=== PATIENT | male | born 1985 | race Hispanic/Latino ===

== ENCOUNTER 2017-04-12 20:01 | Emergency (ER) | payer BC ==
[2017-04-12 20:42] VITALS: BP 130/70; PULSE 106; RESP 18; TEMP 97.5; O2SAT 97
--- NOTE | 2017-04-12 21:04 | ED PDOC ---
HPI: CCC, URI, Sore Throat Time Seen by Provider: 04/12/17 20:47 Chief Complaint (Nursing): ENT Problem Chief Complaint (Provider): Epistaxis History Per: Patient History/Exam Limitations: no limitations Onset/Duration Of Symptoms: Days (x1) Current Symptoms Are (Timing): Gone Now Additional Complaint(s): Robby Manzanares is a 31 year old male who presents to the ED due to nosebleeds x1 day. He states he gets nosebleeds often in the winter. He also states his nose bled 3 times today at work and each time the bleeding stopped after about 10 minutes. Patient then went home this evening and had prolonged bleeding for one hour which prompted him to come to ED. Upon arrival patient has no further active bleeding. No associated headache or dizziness. Patient states he has been congested and has been taking Sudafed for the congestion. PMD: Kassidy Smith MD Past Medical History Reviewed: Historical Data, Nursing Documentation, Vital Signs Vital Signs: Last Vital Signs Temp 97.5 F L 04/12/17 20:40 Pulse 106 H 04/12/17 20:40 Resp 18 04/12/17 20:40 BP 130/70 04/12/17 20:40 Pulse Ox 97 04/12/17 21:21 - Medical History PMH: HTN - Surgical History Other surgeries: Shell teeth removal - Family History Family History: States: No Known Family Hx - Living Arrangements Living Arrangements: With Family - Social History Current smoker - smoking cessation education provided: Yes Alcohol: Occasional Drugs: Denies - Home Medications Home Medications: Ambulatory Orders Medication Instructions Recorded Ibuprofen [Motrin] 600 mg PO Q8 #30 tab 07/09/14 Sodium Chloride [Hopkins Saline] 50 ml NS DAILY #1 bottle 04/12/17 - Allergies Allergies/Adverse Reactions: Allergies Allergy/AdvReac Type Severity Reaction Status Date / Time berries Allergy RASH Uncoded 04/12/17 20:43 Review of Systems ROS Statement: Except As Marked, All Systems Reviewed And Found Negative Constitutional: Negative for: Fever ENT: Positive for: Other (epistaxis ) Cardiovascular: Negative for: Chest Pain Gastrointestinal: Negative for: Nausea, Vomiting Neurological: Negative for: Headache, Dizziness Physical Exam - Reviewed Nursing Documentation Reviewed: Yes Vital Signs Reviewed: Yes - Physical Exam Appears: Positive for: Well, Non-toxic, No Acute Distress Head Exam: Positive for: ATRAUMATIC, NORMAL INSPECTION, NORMOCEPHALIC Skin: Positive for: Normal Color. Negative for: Rash Eye Exam: Positive for: Normal appearance ENT: Positive for: Nasal Congestion, Other (Bilateral nares are patent, no active bleeding, no septal hematoma). Negative for: Pharyngeal Erythema Cardiovascular/Chest: Positive for: Regular Rate, Rhythm Respiratory: Positive for: Normal Breath Sounds Neurologic/Psych: Positive for: Alert, Oriented - ECG O2 Sat by Pulse Oximetry: 97 (RA) Pulse Ox Interpretation: Normal Medical Decision Making Medical Decision Making: Time: 21:00 Initial Impression: 31 year old male with recurrent epistaxis Plan: --Upon provider evaluation patient is medically stable, and requires no further treatment in the ED at this time. Patient will be discharged home with Rx for Saline nasal spray. Counseling was provided and all questions were answered regarding diagnosis and need for follow up with ENT specialist. There is agreement to discharge plan. Return if symptoms persist or worsen. Scribe Attestation: Documented by Erwin Nieto, acting as a scribe for Mya Whiteside PA-C Provider Scribe Attestation: All medical record entries made by the Scribe were at my direction and personally dictated by me. I have reviewed the chart and agree that the record accurately reflects my personal performance of the history, physical exam, medical decision making, and the department course for this patient. I have also personally directed, reviewed, and agree with the discharge instructions and disposition. Disposition - Clinical Impression Clinical Impression: Epistaxis - Patient ED Disposition Is Patient to be Admitted: No Counseled Patient/Family Regarding: Diagnosis, Need For Followup, Rx Given - Disposition Referrals: Ashu Pascual MD [Staff Provider] - Disposition: Routine/Home Disposition Time: 21:39 Condition: STABLE Additional Instructions: Use saline as directed. Follow up with ear, nose and throat specialist. Prescriptions: Sodium Chloride [Hopkins Saline] 50 ml NS DAILY #1 bottle Instructions: Nosebleed (ED) Forms: [employer] (Upper Sorbian)
== END 2017-04-12 22:25 | disposition home or self-care (01) ==
LOC: H.ER 20:01
DX: R04.0 Epistaxis (principal); I10 Essential (primary) hypertension

== ENCOUNTER 2017-04-14 13:41 | Emergency (ER) | payer BC ==
[2017-04-14 13:48] VITALS: BP 141/89; RESP 18; TEMP 98.2; O2SAT 99
[2017-04-14] MEDS ORDERED: Sodium Chloride 0.9% 1,000 ML IV STA (14:34)
[2017-04-14] MEDS ORDERED: Silver Nitrate Topical - Stick TOP ONE (14:35)
[2017-04-14 14:56] LABS: BASO % 0.7 % (0.0-2.0); EOS # 0.1 K/uL (0.0-0.7); EOS % 2.3 % (0.0-4.0); LYMPH # 1.6 K/uL (1.0-4.3); LYMPH % 25.7 % (20.0-40.0); MEAN CELL VOLUME 93.7 fl (80.0-94.0); MEAN CORPUSCULAR HEMOGLOBIN 32.2 pg (27.0-31.0); MEAN CORPUSCULAR HGB CONC 34.3 g/dL (33.0-37.0); MEAN PLATELET VOLUME 7.6 fl (7.2-11.7); MONO # 0.5 K/uL (0.0-0.8); MONO % 8.4 % (0.0-10.0); NEUT % 62.9 % (50.0-75.0); NRBC % 0.2 % (0.0-0.0); RED CELL DISTRIBUTION WIDTH 12.7 % (11.5-14.5); WHITE BLOOD COUNT 6.4 K/uL (4.8-10.8)
--- NOTE | 2017-04-14 15:03 | ED PDOC ---
HPI: General Adult Time Seen by Provider: 04/14/17 13:57 Chief Complaint (Nursing): ENT Problem History Per: Patient Additional Complaint(s): Pt. states for the past several days he's had intermittent L nostril bleeding. He was seen yesterday in ED for same complaint but today he had continued bleeding from the L nostril which lasted for approximately 45 mins. Pt. states he's been feeling dizzy since then Denies headache, hx of anemia, previous transfusions. Past Medical History Reviewed: Historical Data, Nursing Documentation, Vital Signs Vital Signs: Last Vital Signs Temp 98.2 F 04/14/17 13:45 Pulse 87 04/14/17 13:45 Resp 18 04/14/17 13:45 BP 141/89 04/14/17 13:45 Pulse Ox 99 04/14/17 15:04 - Medical History PMH: Anxiety, HTN - Family History Family History: States: No Known Family Hx - Home Medications Home Medications: Ambulatory Orders Medication Instructions Recorded Ibuprofen [Motrin] 600 mg PO Q8 #30 tab 07/09/14 Sodium Chloride [Gardena Saline] 50 ml NS DAILY #1 bottle 04/12/17 - Allergies Allergies/Adverse Reactions: Allergies Allergy/AdvReac Type Severity Reaction Status Date / Time berries Allergy RASH Uncoded 04/12/17 20:43 Review of Systems ROS Statement: Except As Marked, All Systems Reviewed And Found Negative Neurological: Positive for: Dizziness Physical Exam - Physical Exam Appears: Positive for: Well, Non-toxic, No Acute Distress Head Exam: Positive for: ATRAUMATIC, NORMAL INSPECTION, NORMOCEPHALIC Skin: Positive for: Normal Color, Warm. Negative for: Rash Eye Exam: Positive for: EOMI, Normal appearance, PERRL ENT: Positive for: Other (L nostril with dry blood; no bleeding in pharynx) Neck: Positive for: Normal, Painless ROM Cardiovascular/Chest: Positive for: Regular Rate, Rhythm Respiratory: Positive for: CNT, Normal Breath Sounds Gastrointestinal/Abdominal: Positive for: Normal Exam, Soft. Negative for: Tenderness Back: Positive for: Normal Inspection Extremity: Positive for: Normal ROM Neurologic/Psych: Positive for: Alert, Oriented - Laboratory Results Result Diagrams: 04/14/17 14:50 04/14/17 14:50 - ECG ECG: Positive for: Interpreted By Me ECG Rhythm: Positive for: Sinus Rhythm. Negative for: ST/T Changes Rate: 80 O2 Sat by Pulse Oximetry: 99 Disposition - Clinical Impression Clinical Impression: Epistaxis - Patient ED Disposition Is Patient to be Admitted: No - Disposition Referrals: [facility] [Outside] Ashu Pascual MD [Staff Provider] - Disposition: Routine/Home Disposition Time: 15:30 Condition: IMPROVED Instructions: Nosebleed (ED) Forms: [employer] (Thai) Print Language: CROATIAN
[2017-04-14 15:08] LABS: ALB/GLOB RATIO 1.4 (1.0-2.1); ALKALINE PHOSPHATASE 59 U/L (38-126); ALT/SGPT 204 U/L (21-72); AST/SGOT 111 U/L (17-59); BILIRUBIN,TOTAL 0.3 mg/dl (0.2-1.3); BLOOD UREA NITROGEN 33 mg/dl (9-20); CALCIUM 9.6 mg/dL (8.4-10.2); CARBON DIOXIDE 23 mmol/L (22-30); CHLORIDE 105 mmol/L (98-107); GFR AFRICAN-AMERICAN > 60; GLUCOSE,RANDOM 118 mg/dL (75-110); POTASSIUM 4.3 MMOL/L (3.6-5.0); SODIUM 140 mmol/l (132-148)
[2017-04-14 15:11] LABS: PARTIAL THROMBOPLASTIN TIME 31.6 Seconds (25.6-37.1)
[2017-04-14] MEDS ORDERED: Silver Nitrate Topical - Stick ONE (15:20)
[2017-04-14 16:08] VITALS: PULSE 80
--- NOTE | 2017-04-15 11:01 | CARD ---
APPROVED REPORT EKG Measurement Heart [id number] <Conclusion> Normal sinus rhythm Normal ECG
== END 2017-04-14 16:50 | disposition home or self-care (01) ==
LOC: H.ER 13:41
DX: R04.0 Epistaxis (principal); F41.9 Anxiety disorder, unspecified; I10 Essential (primary) hypertension
CPT/HCPCS: 80053; 85025; 85610; 85730; 86850; 86900; 93005; 96360; 99282; J7040

== ENCOUNTER 2018-10-13 05:31 | Emergency (ER) | payer SELFPAY ==
[2018-10-13 05:53] VITALS: PULSE 79
--- NOTE | 2018-10-13 06:22 | ED PDOC ---
HPI: Abdomen Time Seen by Provider: 10/13/18 05:53 Chief Complaint (Nursing): Abdominal Pain Chief Complaint (Provider): Abdominal Pain History Per: Patient History/Exam Limitations: no limitations Onset/Duration Of Symptoms: Days (x7), Worse Since (this morning) Associated Symptoms: Urinary Symptoms (bloody stools) Additional Complaint(s): 32 years old male with history of colitis presents to ER for evaluation of bloody stools onset a week ago. Patient reports worsening of symptoms this morning and having more bloody stools. He denies abdominal pain. PMD: Kassidy Smith Past Medical History Reviewed: Historical Data, Nursing Documentation, Vital Signs Vital Signs: Last Vital Signs Temp 98.2 F 10/13/18 05:51 Pulse 79 10/13/18 05:51 Resp 16 10/13/18 05:51 BP 145/89 10/13/18 05:51 Pulse Ox 98 10/13/18 05:51 Primary Care Provider: Kassidy Smith - Medical History PMH: Anxiety, HTN Other PMH: Colitis - Surgical History Surgical History: No Surg Hx - Family History Family History: States: Unknown Family Hx - Social History Current smoker - smoking cessation education provided: No Alcohol: None Drugs: Denies - Home Medications Home Medications: Ambulatory Orders Medication Instructions Recorded Ibuprofen [Motrin] 600 mg PO Q8 #30 tab 07/09/14 Sodium Chloride [Hibbs Saline] 50 ml NS DAILY #1 bottle 04/12/17 - Allergies Allergies/Adverse Reactions: Allergies Allergy/AdvReac Type Severity Reaction Status Date / Time berries Allergy RASH Uncoded 04/12/17 20:43 Review of Systems ROS Statement: Except As Marked, All Systems Reviewed And Found Negative Gastrointestinal: Positive for: Hematochezia. Negative for: Abdominal Pain Physical Exam - Reviewed Nursing Documentation Reviewed: Yes Vital Signs Reviewed: Yes - Physical Exam Appears: Positive for: Well, No Acute Distress Head Exam: Positive for: ATRAUMATIC, NORMOCEPHALIC Cardiovascular/Chest: Positive for: Regular Rate, Rhythm. Negative for: Murmur Respiratory: Positive for: Normal Breath Sounds. Negative for: Wheezing Gastrointestinal/Abdominal: Positive for: Normal Exam, Soft. Negative for: Te nderness Rectal: Positive for: Hemorrhoids (external hemorrhoids present), Other (Bright red blood on rectal. No active bleeding. Exam performed in the presence of RN Megan Westfall) Extremity: Positive for: Normal ROM. Negative for: Pedal Edema, Swelling Neurological/Psych: Positive for: Awake, Alert, Oriented (x3) - Laboratory Results Result Diagrams: 10/13/18 06:33 10/13/18 06:33 - ECG O2 Sat by Pulse Oximetry: 98 (RA) Pulse Ox Interpretation: Normal Medical Decision Making Medical Decision Making: Time: 606 Initial impression: rectal bleeding Initial plan: --Type and screen --CT Abdomen/Pelvis --CMP --CBC --PTT --PT 0[address] singed out to Dr. Palacios, pending CT Abdomen. Scribe Attestation: Documented by Radha Neumann acting as a scribe for Jean-Pierre Mcfarland MD. Provider Scribe Attestation: All medical record entries made by the Scribe were at my direction and personally dictated by me. I have reviewed the chart and agree that the record accurately reflects my personal performance of the history, physical exam, medical decision making, and the department course for this patient. I have also personally directed, reviewed, and agree with the discharge instructions and disposition. Disposition - Patient ED Disposition Is Patient to be Admitted: Transfer of Care - Disposition Disposition: Transfer of Care Disposition Time: 07:00 Forms: [employer] (Yemeni) Patient Signed Over To: Michael Palacios
[2018-10-13 06:43] LABS: BASO # 0.1 K/uL (0.0-0.2); BASO % 0.8 % (0.0-2.0); EOS # 0.3 K/uL (0.0-0.7); EOS % 3.9 % (0.0-4.0); HEMOGLOBIN 15.2 g/dL (12.0-18.0); LYMPH # 2.7 K/uL (1.0-4.3); LYMPH % 33.2 % (20.0-40.0); MEAN CELL VOLUME 94.6 fl (80.0-94.0); MEAN CORPUSCULAR HEMOGLOBIN 32.3 pg (27.0-31.0); MEAN CORPUSCULAR HGB CONC 34.1 g/dL (33.0-37.0); MEAN PLATELET VOLUME 7.8 fl (7.2-11.7); MONO # 0.5 K/uL (0.0-0.8); MONO % 6.2 % (0.0-10.0); NEUT # 4.5 K/uL (1.8-7.0); NEUT % 55.9 % (50.0-75.0); NRBC % 0.1 % (0.0-0.0); RBC 4.72 Mil/uL (4.40-5.90); RED CELL DISTRIBUTION WIDTH 13.3 % (11.5-14.5)
[2018-10-13 06:51] LABS: ALB/GLOB RATIO 1.3 (1.0-2.1); ALBUMIN 4.6 g/dL (3.5-5.0); ALT/SGPT 94 U/L (21-72); AST/SGOT 76 U/L (17-59); BLOOD UREA NITROGEN 8 mg/dl (9-20); CALCIUM 8.9 mg/dL (8.4-10.2); GFR NON-AFRICAN AMERICAN > 60
[2018-10-13 06:55] LABS: PROTHROMBIN TIME 11.2 Seconds (9.8-13.1)
[2018-10-13 06:58] LABS: PARTIAL THROMBOPLASTIN TIME 35.1 Seconds (25.6-37.1)
--- NOTE | 2018-10-13 07:17 | ED PDOC ---
- Laboratory Results Result Diagrams: 10/13/18 06:33 10/13/18 06:33 Lab Results: PT 11.2 Seconds (9.8-13.1) 10/13/18 06:33 INR 1.0 10/13/18 06:33 APTT 35.1 Seconds (25.6-37.1) 10/13/18 06:33 Total Bilirubin 0.4 mg/dl (0.2-1.3) 10/13/18 06:33 AST 76 U/L (17-59) H D 10/13/18 06:33 ALT 94 U/L (21-72) H D 10/13/18 06:33 Alkaline Phosphatase 52 U/L (38-126) 10/13/18 06:33 Total Protein 8.1 G/DL (6.3-8.2) 10/13/18 06:33 Albumin 4.6 g/dL (3.5-5.0) 10/13/18 06:33 Globulin 3.5 gm/dL (2.2-3.9) 10/13/18 06:33 Albumin/Globulin Ratio 1.3 (1.0-2.1) 10/13/18 06:33 Interpretation Of Abn Labs: 3.5 k, elevated liver enzymes - ECG O2 Sat by Pulse Oximetry: 98 (RA) Pulse Ox Interpretation: Normal - Progress ED Course And Treament: 912: Stable. AAOx3. Pain free. Tolerated PO. Liver enzymes mild elevation. No rectal bleeding at this time. Will fu with pcp and gi. No urinary symptoms. Medical Decision Making Medical Decision Making: Time: 0700 -- Patient endorsed to me by Dr. Palacios, pending workup, re-assessment and final ER disposition. ____ Scribe Attestation: Documented by Christa Rome, acting as a scribe Frida Palacios MD. Provider Scribe Attestation: All medical record entries made by the Scribe were at my direction and personally dictated by me. I have reviewed the chart and agree that the record accurately reflects my personal performance of the history, physical exam, medical decision making, and the department course for this patient. I have also personally directed, reviewed, and agree with the discharge instructions and disposition. Disposition Counseled Patient/Family Regarding: Studies Performed, Diagnosis, Need For Followup - Clinical Impression Clinical Impression: Rectal bleeding, Elevated liver enzymes, Hypokalemia - POA Present On Arrival: None - Disposition [facility] - 10[facility]14[facility]18 Disposition: Routine/Home Disposition Time: 09:14 Condition: STABLE Additional Instructions: Return if not better in 3 days. You have elevated liver enzymes for which you should follow up with the specialist. Instructions: Bloody Stools, Hypokalemia Forms: [employer] (Amharic)
[2018-10-13] MEDS ORDERED: Sodium Chloride 0.9% 50 ML IV ONE (07:51)
[2018-10-13] MEDS ORDERED: Iohexol 300 100 ML IJ ONE (07:51)
--- NOTE | 2018-10-13 08:36 | CT ---
Date of service: 10/13/2018 PROCEDURE: CT Abdomen and Pelvis with contrast HISTORY: bloody stools COMPARISON: 07/11/2011 TECHNIQUE: Contrast dose: 100 mL Omnipaque 300 Radiation dose: Total exam DLP = 786.79 mGy-cm. This CT exam was performed using one or more of the following dose reduction techniques: Automated exposure control, adjustment of the mA and/or kV according to patient size, and/or use of iterative reconstruction technique. FINDINGS: LOWER THORAX: Unremarkable. LIVER: Normal size and contour. Diffusely diminished attenuation consistent with fatty infiltration. No mass. No biliary dilatation. GALLBLADDER AND BILE DUCTS: Unremarkable. PANCREAS: Unremarkable. No gross lesion or ductal dilatation. SPLEEN: Unremarkable. ADRENALS: Unremarkable. No mass. KIDNEYS AND URETERS: Unremarkable. No hydronephrosis. No solid mass. VASCULATURE: Unremarkable. No aortic aneurysm. No aortic atherosclerotic calcification or mural plaque present. BOWEL: Mild sigmoid diverticulosis without evidence of diverticulitis. No bowel obstruction. No other abnormal bowel loops. APPENDIX: Normal appendix. PERITONEUM: Unremarkable. No free fluid. No free air. LYMPH NODES: Unremarkable. No enlarged lymph nodes. BLADDER: Diffusely thickened wall concerning for cystitis. The bladder is suboptimally distended. Nevertheless, this is concerning and correlation with urinalysis is advised. REPRODUCTIVE: Normal prostate BONES: No acute fracture. OTHER FINDINGS: None. IMPRESSION: Findings concerning for acute cystitis. Correlate with urinalysis. Mild sigmoid diverticulosis. No evidence of diverticulitis. Fatty infiltration of the liver.
[2018-10-13] MEDS ORDERED: Potassium Chloride 20 mEq ER Tab PO STA (08:46)
[2018-10-13] MEDS ORDERED: Potassium Chloride 20 mEq ER Tab PO ONE (08:54)
[2018-10-13 09:55] VITALS: BP 147/90; RESP 18; TEMP 97.9; O2SAT 97
== END 2018-10-13 09:42 | disposition home or self-care (01) ==
LOC: H.ER 05:31
DX: K62.5 Hemorrhage of anus and rectum (principal); R74.8 Abnormal levels of other serum enzymes; E87.6 Hypokalemia
CPT/HCPCS: 74177; 80053; 85025; 85610; 85730; 86850; 86900; 99284; Q9967